=== PATIENT | female | born 1950 | race Two or more races ===

== ENCOUNTER 2021-08-03 17:02 | Emergency (ER) | payer BC, OTHER ==
[~2021-08-03] VITALS: Ht 172.7 cm; Wt 98.0 kg
[2021-08-03] MEDS ORDERED: DIAZEPAM5 MG/1 M1 PO (17:11)
[2021-08-03] MEDS ORDERED: WELLBUTRIN SR100 MG PO (17:14)
[2021-08-03] MEDS ORDERED: ACID REDUCER20 M1 PO (17:15)
== END 2021-08-03 18:25 | disposition home or self-care (01) ==
LOC: ER 17:02
DX: M54.50 Low back pain, unspecified (principal); Z98.84 Bariatric surgery status; Z85.038 Personal history of other malignant neoplasm of large intestine

== ENCOUNTER 2021-08-07 15:34 | Emergency (ER) | payer OTHER, BC ==
[~2021-08-07] VITALS: Ht 172.7 cm; Wt 95.3 kg
[~2021-08-07 15:34] MED LIST: ACID REDUCER20 M1 PO; DIAZEPAM5 MG/1 M1 PO; WELLBUTRIN SR100 MG PO
== END 2021-08-07 18:30 | disposition home or self-care (01) ==
LOC: ER 15:34
DX: M54.50 Low back pain, unspecified (principal); I10 Essential (primary) hypertension; Z98.84 Bariatric surgery status

== ENCOUNTER 2024-03-27 08:04 | Outpatient (CLI) | payer OTHER, BC ==
[~2024-03-27 08:04] MED LIST changes: +CANDESARTAN-HC1 EAC1 PO; +NORVASC5 MG PO; +SYNTHROID88 MCG PO; +ULTRACET PO; +WELLBUTRIN XL300 MG PO
[2024-03-27 09:53] LABS: URINE APPEARANCE Clear; URINE BILIRRUBIN Negative (NEGATIVE); URINE BLOOD Negative; URINE COLOR Yellow; URINE GLUCOSE Negative (NEGATIVE); URINE KETONE Negative (NEGATIVE); URINE LEUKOCYTE Trace; URINE NITRATE Negative; URINE PROTEIN Negative (NEGATIVE); URINE UROBILINOGEN 0.2 E.U./dl
[2024-03-27 09:56] LABS: URINE BACTERIA 107.6 uL (0.0-1933); URINE EPITHELIAL CELLS 13.2 uL (0.0-38.8); URINE RBC 56.8 uL (0.0-20.8); URINE WBC 3.9 uL (0.0-23.2)
[2024-03-27 10:11] LABS: HEMATOCRIT 34.4 % (36.0-45.00); HEMOGLOBIN 11.7 g/dL (12.0-15.00); MEAN CELL VOLUME 77.6 fL (80.00-100.00); MEAN CORPUSCULAR HEMOGLOBIN 26.5 pg (27.00-32.0); MEAN CORPUSCULAR HGB CONC 34.1 g/dl (32.0-36.0); PLATELET COUNT 272 K/uL (150-450); RED BLOOD COUNT 4.44 M/uL (4.00-6.00); RED CELL DISTRIBUTION WIDTH 15.2 % (11.5-14.5)
[2024-03-27 10:25] LABS: INR 1.02; PARTIAL THROMBOPLASTIN TIME 27.4 SECONDS (22.0-34.0); PROTHROMBIN TIME 11.1 SECONDS (9.0-11.5)
[2024-03-27 10:32] LABS: URINE CAST 0.29 uL (0.0-1.40)
[2024-03-27 10:50] LABS: ALBUMIN 3.7 gm/dL (3.4-5.0); BILIRUBIN TOTAL 0.57 mg/dL (0.3-1.2); CALCIUM 9.9 mg/dL (8.5-10.1); CHOL HDL RATIO 1.9 (0-5.0); CREATININE SERUM 0.86 mg/dL (0.55-1.02); GFR 64.32; GLOBULINA 2.4 G/DL (2.4-3.5); POTASSIUM 4.33 mEq/L (3.5-5.1); TOTAL PROTEIN 6.1 gm/dL (6.4-8.2); TSH 0.88 uIU/mL (0.358-3.74)
== END 2024-03-27 08:05 | disposition home or self-care (01) ==
LOC: RAD 08:04 → LAB 16:14
PROVIDERS: ATTEND Internal Medicine
DX: N03.9 Chronic nephritic syndrome with unspecified morphologic changes (principal); E11.65 Type 2 diabetes mellitus with hyperglycemia; D50.0 Iron deficiency anemia secondary to blood loss (chronic); Z01.818 Encounter for other preprocedural examination; F33.1 Major depressive disorder, recurrent, moderate; N18.30 Chronic kidney disease, stage 3 unspecified; I11.9 Hypertensive heart disease without heart failure; I27.82 Chronic pulmonary embolism; E03.8 Other specified hypothyroidism; J44.1 Chronic obstructive pulmonary disease with (acute) exacerbation; D64.9 Anemia, unspecified; E11.9 Type 2 diabetes mellitus without complications; E78.2 Mixed hyperlipidemia; N39.0 Urinary tract infection, site not specified; N18.31 Chronic kidney disease, stage 3a; Z12.11 Encounter for screening for malignant neoplasm of colon; E55.9 Vitamin D deficiency, unspecified; R00.0 Tachycardia, unspecified

== ENCOUNTER 2024-04-02 14:56 | Outpatient (CLI) | payer OTHER, BC ==
[2024-04-02 15:31] LABS: ob POSITIVE (NEGATIVE)
== END 2024-04-02 14:57 | disposition home or self-care (01) ==
LOC: LAB 14:56
PROVIDERS: ATTEND Internal Medicine
DX: E11.9 Type 2 diabetes mellitus without complications (principal); D64.9 Anemia, unspecified; E78.2 Mixed hyperlipidemia; N39.0 Urinary tract infection, site not specified; E03.8 Other specified hypothyroidism; N18.31 Chronic kidney disease, stage 3a; Z12.11 Encounter for screening for malignant neoplasm of colon; E55.9 Vitamin D deficiency, unspecified